=== PATIENT | male | born 1950 | race African-American/Black ===

== ENCOUNTER 2024-05-24 09:34 | Emergency (ER) | payer MEDICAID ==
[~2024-05-24] VITALS: Ht 195.6 cm; Wt 81.6 kg
[2024-05-24 09:36] VITALS: O2SAT 100
[2024-05-24 10:13] VITALS: TEMP 98.6; O2SAT 100
[2024-05-24 12:03] VITALS: BP 125/77; PULSE 88; RESP 16
[2024-05-24] MEDS: IBUPROFEN 400MG TABLET PO ONE (12:03)
[2024-05-24 12:56] LABS: CHLORIDE 109 mEq/L (98-107); SODIUM 139 mEq/L (136-145)
[2024-05-24 12:57] LABS: CALCIUM 9.1 mg/dL (8.7-10.4); CARBON DIOXIDE 23 mEq/L (21-32)
[2024-05-24 12:59] LABS: BASOPHILS % 0.5 % (0.0-2.0); DIFFERENTIAL COMMENT 0; EOSINOPHILS % 0.8 % (0.0-5.0); HEMATOCRIT. 35.4 % (42.0-52.0); HEMOGLOBIN. 11.7 g/dL (14.0-18.0); LYMPHOCYTES % 20.8 % (20.0-50.0); MEAN CORPUSCULAR HEMOGLOBIN 34.1 pg (28.0-32.0); MEAN CORPUSCULAR HGB CONC 33.1 g/dL (31.0-37.0); MEAN CORPUSCULAR VOLUME 103.1 fL (80.0-94.0); MEAN PLATELET VOLUME 9.4 fl (7.4-10.4); MONOCYTES % 13.6 % (2.0-8.0); NEUTROPHILS % 64.3 % (40.0-76.0); PLATELET 113 x1000/uL (130-400); RED BLOOD CELL COUNT 3.44 mill/uL (4.7-6.1); RED CELL DISTRIBUTION WIDTH 15.1 % (11.6-14.6); WHITE BLOOD COUNT 7.6 x1000/uL (4.5-11.0)
[2024-05-24 13:02] LABS: CREATININE 1.1 mg/dL (0.6-1.3); GLUCOSE 85 mg/dL (70-105); UREA NITROGEN BLOOD 15 mg/dL (9-23)
[2024-05-24 13:04] LABS: ALANINE AMINOTRANSFERASE 17 IU/L (10-49); ALBUMIN 4.1 g/dL (3.2-4.8); ASPARTATE AMINOTRANSFERASE 19 IU/L (<34); BILIRUBIN TOTAL 0.7 mg/dL (0.1-1.0); PROTEIN TOTAL 7.4 g/dL (6.0-8.3)
[2024-05-24] MEDS ORDERED: IBUP-2028 MT (14:11)
[2024-05-24] MEDS ORDERED: P20 MT (14:11)
== END 2024-05-24 14:22 | disposition home or self-care (01) ==
LOC: ER 09:34
DX: M25.532 Pain in left wrist (principal); M25.531 Pain in right wrist; M25.521 Pain in right elbow; M25.522 Pain in left elbow; I10 Essential (primary) hypertension
CPT/HCPCS: 36415; 80053; 85025; 99283